=== PATIENT | male | born 1980 | race Caucasian/White ===

== ENCOUNTER 2021-06-01 18:53 | Emergency (ER) | payer MEDICAID, SELFPAY ==
[2021-06-01 20:09] VITALS: BP 125/75; PULSE 88; RESP 16; TEMP 37.1; O2SAT 96; BMI 25.0
[2021-06-01 20:37] LABS: Basophils # 0.1 K/mm3 (0-0.2); Eosinophils # 0.3 K/mm3 (0.0-0.4); Eosinophils % 2.2 % (0.1-12.0); Hemoglobin 16.9 g/dL (14.1-18.0); Lymphocytes # 1.3 K/mm3 (0.7-4.5); Lymphocytes % 11.2 % (10-50); Mean Corpuscular HGB Conc 32.5 g/dL (31.8-35.4); Mean Corpuscular Hemoglobin 30.8 pg (27.0-31.2); Mean Corpuscular Volume 94.8 fl (80-94); Mean Platelet Volume 7.8 fl (7.4-10.4); Monocytes # 0.9 K/mm3 (0.1-1.0); Neutrophils # 8.7 K/mm3 (1.8-7.8); Neutrophils % 77.5 % (37.0-80.0); Platelet Count 323 K/mm3 (142-424); Red Blood Count 5.48 M/mm3 (4.60-6.20); Red Cell Distribution Width 13.3 % (11.5-17.5); White Blood Count 11.3 K/mm3 (4.8-10.8)
--- NOTE | 2021-06-01 20:58 | HMH.EDNVD ---
ED Disposition Clinical Impression: Enteritis Disposition: Home, Self-Care Condition on Discharge: Good Instructions: DI for Enteritis Additional Instructions: bring sample for diarrhea panel and call pcp Referrals: Provider,Referral, [Primary Care Provider] - - Critical Care Critical Care Time: No Attestation: On 06/01/21, the high probability of a clinically significant, sudden or life threatening deterioration of the following system(s) required my full and direct attention, intervention and personal management. The time I documented below is in addition to time spent performing reported procedures but includes the following listed in this critical care notation. Medical Decision Making - Medical Records Medical records reviewed: Yes: I reviewed the patient's medical records. - Jose Miguel Inquiry Pt receiving controlled substance: No Vital Signs: 06/01/21 20:09 Temperature 98.8 F Temperature Source Oral Pulse Rate [Right Brachial] 88 Respiratory Rate 16 Blood Pressure [Right Arm] 125/75 Blood Pressure Mean [Right Arm] 91 Blood Pressure Source [Right Arm] Automatic Cuff Blood Pressure Position [Right Arm] Sitting 02 Sat by Pulse Oximetry 96 Oxygen Delivery Method Room Air - Lab Data Lab results reviewed: Yes: I reviewed the patient's lab results. Lab Results 06/01/21 20:20: WBC 11.3 H, RBC 5.48, Hgb 16.9, Hct 52.0, MCV 94.8 H, MCH 30.8, MCHC 32.5, RDW 13.3, Plt Count 323, MPV 7.8, Neut % (Auto) 77.5, Lymph % (Auto) 11.2, [place] % (Auto) 8.0, Eos % (Auto) 2.2, Baso % (Auto) 1.0, Neut # (Auto) 8.7 H, Lymph # (Auto) 1.3, Kidder # (Auto) 0.9, Eos # (Auto) 0.3, Baso # (Auto) 0.1 06/01/21 20:20: Sodium 137, Potassium 4.3, Chloride 98, Carbon Dioxide 31 H, Anion Gap 12.3, BUN 15, Creatinine 0.90, Estimated Creat Clear 117, Estimated GFR 94, Est GFR ( Amer) 114, Glucose 100, Calcium 9.7, Total Bilirubin 0.7, AST 33, ALT 24, Alkaline Phosphatase 62, Total Protein 7.8, Albumin 4.6, Globulin 3.2, Albumin/Globulin Ratio 1.4 Result diagrams: 06/01/21 20:20 06/01/21 20:20 Orders (Tests/Meds): ORDERS Category Date Time Status Stool Culture Stat Micro 06/01/21 20:21 Ordered Nausea/Vomiting/Diarrhea HPI - General Chief complaint: Nausea/Vomiting/Diarrhea Stated complaint: body pains,weakness,diarrhea.abd pain Time Seen by Provider: 06/01/21 20:30 Mode of Arrival: Family Vehicle Source of Information: Patient, Medical Record Limitations: No Limitations Description of Symptoms (Recalled from ER Triage Doc. by RN): Patient presents wanting evaluation for suspected parasite in his stool. He reports his mom has a parasite and he noticed white bumps or specks in his stool. Patient denies any issue at this time with other body processes. Pt reports generalized weakness, fatigue. Afebrile. no covid exposure he reports. - History of Present Illness HPI Narrative: diarrhea with crampy abd pain with concern about possible inf diarrhea- reports mother treated for same - no hematuria - looked up mother's record and had epec in 2019 MD complaint: diarrhea, abdominal pain Onset (ago): day(s) Associated Abdominal Pain: Yes Location of pain: diffuse Severity: moderate Consistency: intermittent Associated symptoms: denies other symptoms - Related Data Home Medications Medication Instructions Recorded Confirmed No Known Home Medications 06/01/21 06/01/21 Allergies Allergy/AdvReac Type Severity Reaction Status Date / Time No Known Allergies Allergy Verified 06/01/21 20:20 [facility] History - Hepatitis A Screen Drug use history?: No High risk sexual behaviors?: No History of sexually transmitted infection?: No Currently employed?: No Childcare worker?: No Do you have indoor plumbing?: Yes Do you have electricity?: Yes Attestation statement:: This patient has been screened for Hepatitis A risk factors. I have reviewed the patient's past medical history: Yes ROS Obtained: Yes All s
[2021-06-01 21:09] LABS: Alanine Aminotransferase 24 U/L (12-78); Albumin Level 4.6 g/dl (3.5-5.0); Albumin/Globulin Ratio 1.4 (1.1-1.8); Alkaline Phosphatase 62 U/L (38-126); Anion Gap 12.3 mEq/L (5-15); Aspartate Amino Transferase 33 U/L (17-59); Bilirubin,Total 0.7 mg/dl (0.2-1.3); Blood Urea Nitrogen 15 mg/dl (9-20); Calcium 9.7 mg/dl (8.4-10.2); Carbon Dioxide 31 mmol/L (22.0-30.0); Chloride 98 mmol/L (98-107); Creatinine Clearance Estimated 117 mL/min (50-200); Estimated Glomerular Filt Rate 94 ml/min (>60); GFR (African American) 114 ML/MIN (>60); Globulin 3.2 g/dL (1.3-3.2); Glucose 100 mg/dl (74-100); Potassium 4.3 mmoL/L (3.5-5.1); Sodium 137 mmol/L (136-145); Total Protein,Serum 7.8 g/dl (6.3-8.2)
[2021-06-01 21:28] LABS: Coronavirus 19, PCR Not Detected (NotDetected); Influenza A, PCR Not Detected (NotDetected); Influenza B, PCR Not Detected (NotDetected)
[2021-06-01 21:37] VITALS: BP 117/82; PULSE 80; RESP 16; TEMP 37.1; O2SAT 96
== END 2021-06-01 21:38 | disposition home or self-care (01) ==
PROVIDERS: Emergency Provider Emergency Medicine
DX: K52.9 Noninfective gastroenteritis and colitis, unspecified (principal); Z20.822 Contact with and (suspected) exposure to COVID-19
CPT/HCPCS: 80053; 85025; 96365; 99282; C9803; U0003; U0005

== ENCOUNTER 2023-11-04 13:56 | Emergency (ER) | payer OTHER, SELFPAY ==
[2023-11-04 14:07] VITALS: BP 130/73; PULSE 89; RESP 16; TEMP 36.2; O2SAT 97; BMI 23.6
--- NOTE | 2023-11-04 14:08 | ED_ITS ---
<Statement entered by Luis Fernando Hernandez MD - 11/04/23 15:21> I was consulted by the LUCILLE, and we discussed the complexity of the problems being addressed. I approved the treatment and management plan for this patient's care in the emergency department, thus performing a substantive portion of the medical decision making. Luis Fernando Hernandez MD Discharge Plan Disposition Patient Disposition: Home, Self-Care Condition: Good Prescriptions Prescriptions: New amoxicillin-pot clavulanate 875-125 mg tablet 1 tab PO BID Qty: 20 0RF Referrals Follow up/Referrals: ProviderAna MD [Primary Care Provider] - See instructions Adin Juarez MD [Physician] - See instructions Activity Restrictions/Add. Instructions Additional Instructions/Restrictions: Please take your antibiotic till it is all gone. Please call in the morning to make an appointment with the ear nose and throat doctor. Return to ER for any worsening signs or symptoms as needed. Clinical Impressions Clinical Impression: Lymphadenopathy of head and neck Instructions Patient Instructions: DI for Lymphadenopathy Discharge ED Provider: Luis Fernando Hernandez General Adult HPI General Chief complaint: Skin/Abscess/Foreign Body Stated complaint: Lump on right of neck near jaw, numbness around it Time Seen by Provider: 11/04/23 14:05 History of Present Illness HPI narrative: Patient presents for evaluation of a knot on the right side of his neck. Patient reports that he has had swelling in the anterior portion of his right- sided neck for the past 3 days. He has no recent illnesses denies any difficulty swallowing fever chills hemoptysis hematochezia melena. Patient reports that they are nontender and that to him they feel numb . Related Data Previous Rx's Medication Instructions Recorded amoxicillin 875 mg-potassium 1 tab PO BID #20 tabs 11/04/23 clavulanate 125 mg tablet Allergies Allergy/AdvReac Type Severity Reaction Status Date / Time No Known Allergies Allergy Verified 11/04/23 14:13 [facility] Disclaimer: The information contained in this section may have been updated after the patient was seen, as this information can be updated by other users. Social History Smoking Status: Never smoker alcohol intake: never current occupational status: employed Travel in the last 8 weeks: None ROS Obtained: Yes Systems reviewed as appropriate & no additional complaints except as documented Physical Exam General General appearance: alert and in no apparent distress ENT ENT exam: Present mucous membranes moist; Absent normal exam (Patient has palpable lymphadenopathy of the anterior chain on the right side that is nontender to palpation.) or normal oropharynx (Patient has erosive gingivitis due to smokeless tobacco use but no evidence of fluctuance swelling or abscess.) Neck Neck exam: Present lymphadenopathy (Right anterior cervical chain. No virchow node. Patient has full range of motion of the neck tenderness) Respiratory Respiratory exam: Present normal lung sounds bilaterally Cardiovascular Cardiovascular exam: Present regular rate and normal rhythm Neurological Exam Neurological exam: Present alert and oriented X3 Medical Decision Making Medical Records Medical records reviewed: Yes I reviewed the patient's medical records. Jose Miguel Inquiry Pt receiving controlled substance: No Vital Signs: 11/04/23 14:07 11/04/23 14:30 Temperature 97.2 F L Temperature Source Oral Pulse Rate 72 Pulse Rate [Right] 89 Respiratory Rate 16 Blood Pressure 120/83 Blood Pressure [Right Arm] 130/73 Blood Pressure Mean 93 Blood Pressure Mean [Right Arm] 92 Blood Pressure Source [Right Arm] Automatic Cuff Blood Pressure Position [Right Arm] Sitting 02 Sat by Pulse Oximetry 97 97 Oxygen Delivery Method Room Air Lab Data Lab results reviewed: Yes I reviewed the patient's lab results. Lab Results 11/04/23 14:38: WBC 6.8, RBC 4.84, Hgb 15.1, Hct 44.3, MCV 91.5, MCH 31.1, MCHC 34.0, RDW 13.2, Plt Count 290, MPV 7.9, Neut % (Auto) 54.0, Lymph % (Auto) 33.9, [place] % (Auto) 5.7, Eos % (Auto) 5.2, Baso % (Auto) 1.3, Neut # (Auto) 3.7, Lymph # (Auto) 2.3, [place] # (Auto) 0.4, Eos # (Auto) 0.4, Baso # (Auto) 0.1 11/04/23 14:38 Orders (Tests/Meds): ORDERS Category Date Time Status BMP [Basic Metabolic Panel] Stat Lab 11/04/23 14:38 Received CBC w/Auto Diff [Complete Blood Count Auto Diff] Stat Lab 11/04/23 14:38 Results CRP [C-Reactive Protein] Stat Lab 11/04/23 14:38 Received ESR [Erythrocyte Sedimentation Rate] Stat Lab 11/04/23 14:38 Results Procalcitonin Stat Lab 11/04/23 14:38 Received Medical Decision Narrative: In summary patient is a 2-year-old male who presents to the emergency department for evaluation of palpable lymph nodes. Patient is hemodynamically stable upon arrival, afebrile. Labs remarkable for palpable right sided anterior cervical lymph nodes that stopped only in the neck. Patient has no palpable supraclavicular node. Patient has full range of motion without tenderness. Patient has not been recently sick. Patient does have dental disease but no obvious abscess or erythema although he does have gingival erosion. Differential diagnosis includes regional infectious lymphadenopathy versus benign lymphadenopathy versus lymphoma. Initial workup will be conducted with hematologic labs. Initial interventions were considered however patient has no pain no fever thus they were deferred. Initial workup reviewed by me shows that his CBC is completely normal with normal cell lines and no shift in the remainder of his hematologic labs are nonactionable. Upon repeat evaluation had interactive discussion about his findings and plan. Patient will be started on Augmentin and referred to ENT for close follow-up. Patient verbalized understanding and agreement. Given this patient is appropriate for discharge with a prescription for Augmentin with first dose given here Critical Care Critical Care Time Critical Care Time: No
[2023-11-04 14:30] VITALS: BP 120/83; PULSE 72; O2SAT 97
--- NOTE | 2023-11-04 14:36 | PC.NURSE ---
Rounded on room to check on the patient and patient asked for the bed to be laid back some. Laid bed back and asked if they had any other needs and none were needed at this time
[2023-11-04 14:46] LABS: Basophils # 0.1 K/mm3 (0-0.2); Basophils % 1.3 % (0.1-2.0); Eosinophils # 0.4 K/mm3 (0.0-0.4); Eosinophils % 5.2 % (0.1-12.0); Hematocrit 44.3 % (42.0-52.0); Hemoglobin 15.1 g/dL (14.1-18.0); Lymphocytes # 2.3 K/mm3 (0.7-4.5); Lymphocytes % 33.9 % (10-50); Mean Corpuscular Hemoglobin 31.1 pg (27.0-31.2); Mean Corpuscular Volume 91.5 fl (80-94); Mean Platelet Volume 7.9 fl (7.4-10.4); Monocytes # 0.4 K/mm3 (0.1-1.0); Monocytes % 5.7 % (1.7-9.3); Neutrophils # 3.7 K/mm3 (1.8-7.8); Platelet Count 290 K/mm3 (142-424); Red Blood Count 4.84 M/mm3 (4.60-6.20); Red Cell Distribution Width 13.2 % (11.5-17.5); White Blood Count 6.8 K/mm3 (4.8-10.8)
[2023-11-04 14:57] LABS: Anion Gap 9.4 mEq/L (5-15); Blood Urea Nitrogen 10 mg/dl (9-20); Calcium 9.4 mg/dl (8.4-10.2); Carbon Dioxide 30 mmol/L (22.0-30.0); Chloride 104 mmol/L (98-107); Creatinine Clearance Estimated 111 mL/min (50-200); Estimated Glomerular Filt Rate 93 ml/min (>60); GFR (African American) 113 ML/MIN (>60); Glucose 97 mg/dl (74-100); Potassium 3.4 mmoL/L (3.5-5.1); Sodium 140 mmol/L (136-145)
[2023-11-04] MEDS: AMOXICILLIN/CLAVULANATE POTASSIUM 875/125MG TABLET 1 EACH PO (15:09)
[2023-11-04 15:11] LABS: Erythrocyte Sedimentation Rate 3 mm/hr (0-15)
[2023-11-04 15:15] LABS: Procalcitonin 0.034 ng/mL (0.0-2.0)
[2023-11-04 15:17] VITALS: BP 132/91; PULSE 74; RESP 16; TEMP 36.2
[2023-11-04 15:18] LABS: C-Reactive Protein < 0.3 mg/L (0-4)
== END 2023-11-04 15:19 | disposition home or self-care (01) ==
PROVIDERS: Physician Assistant; Emergency Provider Emergency Medicine
DX: R59.0 Localized enlarged lymph nodes (principal)
CPT/HCPCS: 80048; 84145; 85025; 85651; 86140; 99283

== ENCOUNTER 2023-12-11 13:03 | Outpatient (CLI) | payer OTHER, SELFPAY ==
--- NOTE | 2023-12-11 13:11 | CT_ITS ---
FINAL REPORT CLINICAL HISTORY: right sided lymph node swelling COMPARISON: None FINDINGS: CT NECK WITH CONTRAST TECHNIQUE: Axial CT with IV contrast administration. Coronal and sagittal reconstructions were obtained and reviewed. No adenopathy or mass lesion is present . Salivary glands are normal. Larynx is unremarkable. Thyroid gland is unremarkable. There is no abscess. IMPRESSION: No adenopathy. This study was performed using automated techniques to achieve radiation exposure as low as reasonably achievable Reviewed, Interpreted and Dictated by Yolanda Jordan MD Transcribed by Kalani Harmon Authenticated and [facility]
[2023-12-11] MEDS: SODIUM CHLORIDE 0.9% 10ML SYR (RAD ONLY) 10 ML IV (13:51)
[2023-12-11] MEDS: IOPAMIDOL-370 (76%);100ML BOTTLE 75 ML IV (13:51)
== END 2023-12-11 23:59 | disposition home or self-care (01) ==
LOC: RAD 13:03
PROVIDERS: Visit Provider Otolaryngology
DX: R59.1 Generalized enlarged lymph nodes (principal)
CPT/HCPCS: 70491; Q9967